=== PATIENT | female | born 1980 | race Caucasian/White ===

== ENCOUNTER 2022-05-20 07:05 | Day surgery (SDC) | payer BC, SELFPAY ==
--- NOTE | 2022-05-17 12:18 | HP.PCM_ITS ---
History and Physical Date of Admission: 05/20/22 Pre-Op History and Physical ? HPI: The patient is a 42 year old female presenting pre-operative visit. She is scheduled for Hysteroscopy D&C and polypectomy, for AUB, EM polyp on 05/20/22. Procedure discussed along with risks, benefits and complications. Other alternatives discussed for management. Consent form signed? Yes. ? ? PAST MEDICAL HISTORY PAST MEDICAL HISTORY Diagnosis Date ? Excessive or frequent menstruation ? ? Irregular menstrual cycle ? ? ? PAST SURGICAL HISTORY PAST SURGICAL HISTORY Procedure Laterality Date ? PAST SURGICAL HISTORY OF ? 1994 ? Removal of a ovarian cyst on the left side ? ? ? CURRENT MEDICATIONS Current Outpatient Medications Medication Sig Dispense Refill ? clotrimazole-betamethasone (LOTRISONE) cream Apply 1 application to affected area twice daily. 15 g 1 ? calcium/magnesium/vitamin D2 (ONE-A-DAY CALCIUM PLUS ORAL) Take by mouth. ? ? ? MV,CA,MIN/IRON/FA/GUARANA/CAFF (ONE-A-DAY WOMEN'S ACTIVE ORAL) Take 1 tablet by mouth once daily. Taking a [employer] vitamin pack ? ? ? No current facility-administered medications for this visit. ? ? ALLERGIES: Seasonal Allergies ? PERSONAL HISTORY: SOCIAL HISTORY Social History ? Tobacco Use ? Smoking status: Never ? Smokeless tobacco: Never Vaping Use ? Vaping Use: Never used Substance Use Topics ? Alcohol use: Yes ? ? Alcohol/week: 5.0 - 7.5 standard drinks ? ? Types: 2 - 3 Mixed Drinks per week ? ? Comment: Occasionally,NOT WHILE PREGNANR ? Drug use: No ? FAMILY HISTORY: FAMILY HISTORY FAMILY HISTORY Problem Relation Age of Onset ? Hypertension Mother ? ? Cancer Mother ? ? Diabetes Father ? ? other (Heart Disease) Father ? ? heart failure ? other (Multiple Sclerosis) Brother ? ? ? REVIEW OF SYMPTOMS: negative except as noted above PHYSICAL EXAMINATION: ? VITALS: Blood pressure 110/60, weight 193 lb (87.5 kg), last menstrual period 03/13/2022. ? GENERAL: The patient is well nourished, well hydrated in no acute distress. , The patient is oriented to time, place, and person. NECK: full range of motion ? IMPRESSION: 42yo with AUB, EM polyp ? PLAN: Hysteroscopy, D&C, Polypectomy ? Pt has been counseled on risks/benefits and alternatives of surgery including but not limited to anesthesia, bleeding, infection, uterine perforation with subsequent injury to pelvic structures including bowel, bladder, ureters and vessels. Pt wishes to proceed with surgery at this time. ? Pre and post instructions reviewed ? ? I have reviewed and updated past medical and surgical history, medications and allergies Daisy Campa MD Office Visit on 05/17/2022 Office Visit on 05/17/2022 Note shared with patient
[2022-05-20 07:31] VITALS: BP 90/50; PULSE 56; RESP 16; TEMP 36.6; O2SAT 99; BMI 32.9
[2022-05-20 07:35] LABS: Internal QC Validated? YES +Cl - CLEAR BKGD; Pregnancy, Urine Negative Negative
[2022-05-20] MEDS: Lactated Ringers 1,000 ML 15 ML IV (07:50)
[2022-05-20 07:51] LABS: Hematocrit 38.5 % (37-47); Hemoglobin 12.3 g/dL (12.0-15.0); Mean Corp Hgb Conc 31.9 g/dL (32-36); Mean Platelet Vol. 10.1 fl (6.2-12.0); Platelet Count 292 K/mm3 (150-450); RBC Distribution Width SD 46.9 fl (35.1-43.9); Red Blood Count 3.97 M/mm3 (4.2-5.4); White Blood Count 5.9 K/mm3 (4.4-11.0)
--- NOTE | 2022-05-20 08:40 | DCINST_ITS ---
Discharge Instructions Procedure D&C Diet Discharge Diet: No restrictions Activity May resume sexual activity in: 1 week Dressing / Incision Call your doctor if you observe: Fever of 101 or Higher, Inability to urinate, Using more than 1 pad per hour and Uncontrolled pain Follow Up Care Please Follow Up With: Daisy Fierro MD When: 1-2 weeks post OP if you need an appointment please call [phone] Test Results: Test results from this visit will be discussed in further detail at your follow- up appointment, if applicable. Discharge Plan Admission Attending Provider: Daisy Fierro Primary Care Provider: Care Physician,Mary Primary Discharge Orders/Prescriptions Prescriptions: No Action multivitamin Tablet 1 tab PO DAILY Referrals / Follow Up: Care Physician,No Primary [Primary Care Provider] - Disposition Disposition (needs filled in before D/C Order can be placed): Home, Self Care
--- NOTE | 2022-05-20 08:40 | PCM.OPRPT ---
Report of Operation Date of Procedure: 05/20/22 Pre-Operative Diagnosis: AUB, Endometrial polyp Post-Operative Diagnosis: AUB Surgery/Procedure Performed:: Hysteroscopy, D&C Description of Surgical Findings:: Thickened endometrium, Tubal ostia visualized. No definitive polyp identified. Fluid deficiet 500cc Surgeon: Daisy Fierro Type of Anesthesia: MAC Specimen's removed: endometrial curettings Drains: none Estimated Blood Loss (mL): <5cc Fluids Replaced: 600 Description of Procedure: Informed consent was obtained the patient was taken the operating room she was placed in supine position. She was given anesthesia. She was then placed in the [facility] where she was prepped and draped in the normal sterile fashion. At this time the weighted speculum was placed in the posterior fornix of vagina. Single-tooth tenaculum was used to gently grasp the anterior lip the cervix. At this time the uterine cavity was sounded to approximately 9 cm. Gentle dilatation was performed once adequate dilatation of the cervix was achieved the hysteroscope using normal saline as a distention medium was placed. Endometrial tissue thickened but no definite polyp identified. Tubal ostia visualized. . Symphion resecting device used to obtain endometrial curettings. Tissue will be sent to pathology for evaluation. Tenaculum removed. Good hemostasis. Instrument, lap count correct x 2. Vaginal Sweep was negative. Procedure Start Time: 08:46 Procedure Stop Time: 08:57 Complications none Admit VTE Documentation VTE Present on Admission: Yes VTE Mechan Device Prophylaxis: SCD's VTE Pharm Prophylaxis ordered?: No Reason prophylaxis not ordered:: Procedure Not Indicated
--- NOTE | 2022-05-20 08:50 | EMB_PTH ---
PATIENT: TRESSA BARAJAS LOC: [facility] [place] U[place][id number] AGE/SX: 42/F ROOM: RE05/20/[address]: Dr. Daisy Fierro, MDDOB: 1980 BED: DIS: 05/20/2022 SPEC #: [id number] RECD: 05/20/22 10:57 STATUS: POLLY HIRSCH #: [id number] JORGE: 05/20/22 08:[address]: Daisy Fierro DEPT: SURGICAL PATHOLOGY RECD BY: Minerva Bowles ENTERED: 05/20/22 13:18 SP TYPE: ENDOM BX/C MARY DR: No Primary Care Phys Tissues: Endometrium, NOS Procedures: Surgery Specimen Level IV HEADER OPERATION: Hysteroscopy, D & C Symphion, polypectomy PRE-OP DIAGNOSIS: Abnormal uterine bleeding TISSUE SUBMITTED: Endometrial curettings MICROSCOPIC DIAGNOSIS Endometrial curettings: Early secretory endometrium. A few fragments of myometrium. ASH:daly 05/23/2022 MICROSCOPIC DESCRIPTION Slides are reviewed. GROSS DESCRIPTION Received in fixative is one container labeled with the patient's name and designated endometrial curettings. The specimen consists of multiple irregular fragments of hoyt soft tissue that in aggregate measure 5 x 3 x 0.3 cm. The entire specimen is submitted in two cassettes. / ASH:daly 05/20/2022 TC:4 CPT: 02877
[2022-05-20 09:05] VITALS: BP 109/70; BP 90/50; PULSE 67; RESP 16; TEMP 36.2; O2SAT 96
[2022-05-20 09:10] VITALS: BP 117/75; BP 90/50; PULSE 69; RESP 16; O2SAT 96
[2022-05-20 09:15] VITALS: BP 120/88; BP 90/50; PULSE 67; RESP 16; O2SAT 98
[2022-05-20 09:20] VITALS: BP 121/70; BP 90/50; PULSE 58; RESP 16; TEMP 36.7; O2SAT 100
[2022-05-20 09:45] VITALS: BP 90/50
== END 2022-05-20 10:00 | disposition home or self-care (01) ==
LOC: SDC 07:11 → AC 07:11
PROVIDERS: Anesthesiology; Referring Provider Obstetrics & Gynecology; Visit Provider Obstetrics & Gynecology
PROC: 0UB98ZZ Excision of Uterus, Via Natural or Artificial Opening Endoscopic (ICD-10-PCS; CPT 58558; principal; 2022-05-20 08:35)
DX: N93.9 Abnormal uterine and vaginal bleeding, unspecified (principal); N84.0 Polyp of corpus uteri; Z87.42 Personal history of other diseases of the female genital tract
CPT/HCPCS: 58558; 00952; 81025; 85027; 88305; J7120; J2405